=== PATIENT | female | born 1975 | race American Indian/Alaskan Native ===

== ENCOUNTER 2018-11-05 16:28 | Emergency (ER) | payer OTHER ==
--- NOTE | 2018-11-05 17:48 | Emergency Department Report ---
Blank Doc - Documentation Documentation: states she took some antibiotics recently and got a yeast infection and took a 3 day monistat with no relief states malodous vag d/c and irritation of vagina and worried about STD ua,uot,wet prep, g/c
[2018-11-05 18:33] LABS: Bilirubin,Urine NEG (Negative); Blood,Urine SM (Negative); Color,Urine Yellow (Yellow); Mucus,Urine 1+ /HPF; Protein,Urine <15 mg/dL mg/dL (Negative); Urobilinogen,Urine < 2.0 mg/dL (<2.0)
[2018-11-05 18:36] LABS: HCG Qualitative,Urine Negative (Negative)
[2018-11-05] MEDS ORDERED: ZITHROMAX PO ONE (21:11)
[2018-11-05] MEDS ORDERED: ROCEPHIN IM ONE (21:11)
[2018-11-05] MEDS ORDERED: XYLOCAINE 1% MPF 5 mL INFILTRATI ONE (21:11)
--- NOTE | 2018-11-05 21:13 | Emergency Department Report ---
ED Female HPI - General Chief complaint: Urogenital-Female Stated complaint: VAGINAL DISCHARGE Time Seen by Provider: 11/05/18 17:46 Source: patient Mode of arrival: Ambulatory Limitations: No Limitations - History of Present Illness Initial comments: This is a 43-year-old female nontoxic, well nourished in appearance, no acute signs of distress presents to the ED with c/o of vaginal discharge. Patient denies any vaginal pain or swelling. Patient denies any vaginal ulcers or lesions. Patient denies any nausea, vomiting, chest pain, shortness of breathe, fever, chills, headache, back pain, numbness, tingling, stiff neck. Patient denies any urinary symptoms. Patient denies any allergies or PMH. MD Complaint: vaginal discharge, possible STD -: days(s) Severity: mild Severity scale (0 -10): 0 Consistency: constant Improves with: none Worsens with: none Associated Symptoms: vaginal discharge. denies: vaginal bleeding, abdominal pain, nausea/vomiting, fever/chills, headaches, loss of appetite, dysuria, hematuria, rash, seizure, shortness of breath, syncope, weakness - Related Data Sexually active: Yes Previous Rx's Medication Instructions Recorded Last Taken Type metroNIDAZOLE [Flagyl] 500 mg PO Q12HR #14 tab 11/05/18 Unknown Rx Allergies Allergy/AdvReac Type Severity Reaction Status Date / Time No Known Allergies Allergy Unverified 11/05/18 16:51 ED Review of Systems ROS: Stated complaint: VAGINAL DISCHARGE Other details as noted in HPI Constitutional: denies: chills, fever Eyes: denies: eye pain, eye discharge, vision change ENT: denies: ear pain, throat pain Respiratory: denies: cough, shortness of breath, wheezing Cardiovascular: denies: chest pain, palpitations Endocrine: no symptoms reported Gastrointestinal: denies: abdominal pain, nausea, diarrhea Genitourinary: discharge. denies: urgency, dysuria Musculoskeletal: denies: back pain, joint swelling, arthralgia Skin: denies: rash, lesions Neurological: denies: headache, weakness, paresthesias Psychiatric: denies: anxiety, depression Hematological/Lymphatic: denies: easy bleeding, easy bruising ED Past Medical Hx - Past Medical History Previous Medical History?: Yes Hx Hypertension: Yes - Surgical History Past Surgical History?: Yes Additional Surgical History: C section - Social History Smoking Status: Former Smoker Substance Use Type: None - Medications Home Medications: Home Medications Medication Instructions Recorded Confirmed Last Taken Type metroNIDAZOLE [Flagyl] 500 mg PO Q12HR #14 tab 11/05/18 Unknown Rx ED Physical Exam - General Limitations: No Limitations General appearance: alert, in no apparent distress - Head Head exam: Present: atraumatic, normocephalic - Neck Neck exam: Present: normal inspection, full ROM - GI/Abdominal GI/Abdominal exam: Present: soft, normal bowel sounds. Absent: distended, tenderness, guarding, rebound, rigid, diminished bowel sounds - External exam: Present: normal external exam, other (katelyn Wise RN present on exam). Absent: erythema, swelling, lesions, lacerations, ecchymosis, bleeding Speculum exam: Present: cervical discharge, other (katelyn Wise RN present on exam). Absent: erythema, vaginal discharge, vaginal bleeding, foreign body, tissue, laceration Bi-manual exam: Present: other (katelyn Wise RN present on exam). Absent: cervical motion tendernes, adnexal tenderness, adnexal mass, uterine enlargement, uterine tenderness - Extremities Exam Extremities exam: Present: normal inspection, full ROM, normal capillary refill - Back Exam Back exam: Present: normal inspection, full ROM - Neurological Exam Neurological exam: Present: alert, oriented X3 - Psychiatric Psychiatric exam: Present: normal affect, normal mood - Skin Skin exam: Present: warm, dry, intact, normal color. Absent: rash ED Course Vital Signs 11/05/18 11/05/18 17:46 22:02 Temperature 98.3 F Pulse Rate 69 74 Respiratory 20 17 Rate Blood Pressure 127/63 Blood Pressure 136/67 [Right] O2 Sat by Pulse 99 100 Oximetry - Reevaluation(s) Reevaluation #1: 11/05/18 21:13 Patient is speaking in full sentences with no signs of distress noted. ED Medical Decision Making - Medical Decision Making This is a 43-year-old female that presents with possible STD, Trichomonas and that she'll vaginosis. Patient is stable was examined by me. There is no abdominal tenderness. No pelvic pain. UA obtained. Wet prep obtained. Gonorrhea chlamydia swab pending. Patient was instructed to return in 2 days for GC results. Patient wanted empirical treatment so patient received 250 mg Rocephin and 1 g of azithromycin by mouth. Patient was instructed to Follow-up with a primary care doctor in 3-5 days or if symptoms worsen and continue return to emergency room as soon as possible. At time of discharge, the patient does not seem toxic or ill in appearance. No acute signs of distress noted. Patient agrees to discharge treatment plan of care. No further questions noted by the patient. Critical care attestation.: If time is entered above; I have spent that time in minutes in the direct care of this critically ill patient, excluding procedure time. ED Disposition Clinical Impression: BV (bacterial vaginosis), Trichomonas vaginitis, Possible exposure to STD Disposition: DC- TO HOME OR SELFCARE Is pt being admited?: No Does the pt Need Aspirin: No Condition: Stable Instructions: Bacterial Vaginosis (ED), Safe Sex (ED) Additional Instructions: Follow-up with a primary care doctor in 3-5 days or if symptoms worsen and continue return to emergency room as soon as possible. Return in 3-5 days for gonorrhea and chlamydia results. Prescriptions: metroNIDAZOLE [Flagyl] 500 mg PO Q12HR #14 tab Referrals: LAILA ABURTO MD [Primary Care Provider] - 3-5 Days PRIMARY CAREMD [Referring] - 3-5 Days LULI WESTFALL MD [Staff Physician] - 3-5 Days [facility] [Outside] - 3-5 Days [facility] [Outside] - 3-5 Days Forms: Work/School Release Form(ED)
[2018-11-05 22:03] VITALS: BP 136/67
== END 2018-11-05 23:00 | disposition home or self-care (01) ==
LOC: ED 16:28
DX: N76.0 Acute vaginitis (principal); A59.01 Trichomonal vulvovaginitis; I10 Essential (primary) hypertension; Z87.891 Personal history of nicotine dependence
CPT/HCPCS: 81001; 81025; 87086; 87210; 87591; 96372; 99284; J0696

== ENCOUNTER 2019-06-15 16:22 | Emergency (ER) | payer OTHER ==
--- NOTE | 2019-06-15 18:40 | Event Note ---
ED Screening Note ED Screening Note: Pelvic pain and vaginal bleeding x 1 day. H/O fibroids. last menstraul cycle last week. PSH of tabal ligation. This initial assessment/diagnostic orders/clinical plan/treatment(s) is/are subject to change based on patients health status, clinical progression and re- assessment by fellow clinical providers in the ED. Further treatment and workup at subsequent clinical providers discretion. Patient/guardian urged not to elope from the ED as their condition may be serious if not clinically assessed and man aged. Initial orders include:
[2019-06-15 18:41] VITALS: BP 173/94
[2019-06-15] MEDS ORDERED: IBUPROFEN 800 MG TAB PO ONE (18:41)
[2019-06-15] MEDS ORDERED: IBUPROFEN 800 MG TAB ONE (18:43)
[2019-06-15 19:20] LABS: Basophils # (Auto) 0.1 K/mm3 (0.0-0.1); Basophils % (Auto) 0.7 % (0.0-1.8); Eosinophils # (Auto) 0.1 K/mm3 (0.0-0.4); Eosinophils % (Auto) 1.7 % (0.0-4.3); Hematocrit 33.1 % (30.3-42.9); Hemoglobin 10.6 gm/dl (10.1-14.3); Lymphocytes # (Auto) 2.2 K/mm3 (1.2-5.4); Lymphocytes % (Auto) 30.2 % (13.4-35.0); Mean Corpuscular HGB Conc 32 % (30-34); Mean Corpuscular Volume 72 fl (79-97); Monocytes # (Auto) 0.5 K/mm3 (0.0-0.8); Platelet Count 382 K/mm3 (140-440); Red Cell Distribution Width 18.2 % (13.2-15.2)
[2019-06-15 19:38] LABS: Alanine Aminotransferase 13 units/L (7-56); BUN/Creatinine Ratio 15; Blood Urea Nitrogen 12 mg/dL (7-17); Calcium 9.4 mg/dL (8.4-10.2); Hemolysis Index 5
--- NOTE | 2019-06-15 21:06 | Ultrasound Report ---
US pelvic complete, US transvaginal INDICATION / CLINICAL INFORMATION: pelvic pain and vaginal bleeding. COMPARISON: None available. FINDINGS: Transabdominal and transvaginal imaging was performed. Uterus measures 10.2 x 4.6 x 5.6 cm. The endometrial echo complex is borderline thickened at 15 mm. T here is a somewhat irregular isoechoic structure at the cervix which measures 5.9 x 2.0 x 2.3 cm. No flow is seen within this. There is a 6.6 x 3.0 x 4.8 cm right ovarian cyst. Left ovary is unremarkable. Flow is seen to both ov aleksandar. No free fluid is seen in the pelvis. IMPRESSION: 1. Endometrial echo complex is at the upper limits of normal measuring 15 mm. Correlate with menstrua l cycle. 2. There is a complex irregular 5.9 x 2.0 x 2.3 cm focus at the cervix. No flow is seen within this. This could conceivably be hematoma. Hysteroscopy should be considered to better characterize this. 3. 6.6 x 3.0 x 4.8 cm right ovarian cyst. Given its size, sonographic follow-up is recommended if res olution cannot be determined clinically. Signer Name: Dany Wu MD Signed: 06/15/2019 9:01 PM Workstation Name: [id number]
[2019-06-15] MEDS ORDERED: ACETAMINOPHEN 500 MG TAB ONE (23:37)
[2019-06-16] MEDS ORDERED: IBUPROFEN 600 MG TAB PO ONE (00:11)
[2019-06-16] MEDS ORDERED: CYCLOBENZAPRINE 10 MG TAB PO ONE (00:11)
[2019-06-16] MEDS ORDERED: ACETAMINOPHEN 500 MG TAB PO ONE (00:11)
--- NOTE | 2019-06-16 00:15 | Emergency Department Report ---
ED Female HPI - General Chief complaint: Vaginal Bleeding Stated complaint: STOMACH PAIN Time Seen by Provider: 06/15/19 18:46 Source: patient Mode of arrival: Ambulatory Limitations: No Limitations - History of Present Illness Initial comments: Patient is a 44-year-old -[place] female with a history of chronic uterine fibroids with recurrent uterine dysfunctional bleeding presents to the ED with acute onset assistance obvious suprapubic pain with heavy vaginal bleeding for the last 2 days. Patient states that she just completed her mens trual cycle one week ago. Patient states that the suprapubic pain radiates to her lower back, and gets worse with any ambulation or physical activity. Patient denies syncope, chest pain, shortness of breath, vaginal discharge, dysuria, urinary frequency and urgency, dizziness, fever, chills, cough, traumatic injury, dyspareunia, diarrhea, nausea and vomiting. MD Complaint: vaginal bleeding, pelvic pain -: Sudden, days(s) (2) Location: suprapubic Radiation: other (lower back) Severity: severe Severity scale (0 -10): 7 Quality: sharp, aching Consistency: constant Improves with: none Worsens with: none Are you Now?: No Associated Symptoms: denies other symptoms, vaginal bleeding, abdominal pain (suprapubic pain). denies: vaginal discharge, nausea/vomiting, fever/chills, headaches, loss of appetite, dysuria, hematuria, seizure, shortness of breath, syncope, weakness, other - Related Data Sexually active: Yes Previous Rx's Medication Instructions Recorded Last Taken Type metroNIDAZOLE [Flagyl] 500 mg PO Q12HR #14 tab 11/05/18 Unknown Rx Cyclobenzaprine [Flexeril] 10 mg PO Q8H PRN #15 tablet 06/16/19 Unknown Rx Ibuprofen [Motrin] 800 mg PO Q8HR PRN #30 tablet 06/16/19 Unknown Rx Allergies Allergy/AdvReac Type Severity Reaction Status Date / Time No Known Allergies Allergy Unverified 11/05/18 16:51 ED Review of Systems ROS: Stated complaint: STOMACH PAIN Other details as noted in HPI Constitutional: denies: chills, fever Eyes: denies: eye pain, eye discharge, vision change ENT: denies: ear pain, throat pain Respiratory: denies: cough, shortness of breath, wheezing Cardiovascular: denies: chest pain, palpitations Endocrine: no symptoms reported Gastrointestinal: abdominal pain. denies: nausea, diarrhea Genitourinary: abnormal menses (vaginal bleeding). denies: urgency, dysuria, discharge Musculoskeletal: back pain, arthralgia. denies: joint swelling Skin: denies: rash, lesions Neurological: denies: headache, weakness, paresthesias Psychiatric: denies: anxiety, depression Hematological/Lymphatic: denies: easy bleeding, easy bruising ED Past Medical Hx - Past Medical History Previous Medical History?: Yes Hx Hypertension: Yes - Surgical History Past Surgical History?: Yes Additional Surgical History: C section x 4. tubal ligation - Social History Smoking Status: Never Smoker Substance Use Type: Alcohol - Medications Home Medications: Home Medications Medication Instructions Recorded Confirmed Last Taken Type metroNIDAZOLE [Flagyl] 500 mg PO Q12HR #14 tab 11/05/18 Unknown Rx Cyclobenzaprine [Flexeril] 10 mg PO Q8H PRN #15 tablet 06/16/19 Unknown Rx Ibuprofen [Motrin] 800 mg PO Q8HR PRN #30 tablet 06/16/19 Unknown Rx ED Physical Exam - General Limitations: No Limitations General appearance: alert, in no apparent distress - Head Head exam: Present: atraumatic, normocephalic - Eye Eye exam: Present: normal appearance, PERRL, EOMI Pupils: Present: normal accommodation - ENT ENT exam: Present: normal exam, normal orophraynx, mucous membranes moist, TM's normal bilaterally, normal external ear exam - Neck Neck exam: Present: normal inspection, full ROM. Absent: tenderness - Respiratory Respiratory exam: Present: normal lung sounds bilaterally. Absent: respiratory distress, wheezes, rales, rhonchi, chest wall tenderness, accessory muscle use - Cardiovascular Cardiovascular Exam: Present: regular rate, normal rhythm, normal heart sounds. Absent: systolic murmur, diastolic murmur, rubs, gallop - GI/Abdominal GI/Abdominal exam: Present: soft, tenderness (palpable moderate suprapubic t enderness), normal bowel sounds. Absent: guarding, rebound, hyperactive bowel sounds, hypoactive bowel sounds - Extremities Exam Extremities exam: Present: normal inspection, full ROM, normal capillary refill - Back Exam Back exam: Present: normal inspection. Absent: full ROM, tenderness, CVA tenderness (L), muscle spasm, paraspinal tenderness, vertebral tenderness - Neurological Exam Neurological exam: Present: alert, oriented X3, CN II-XII intact, normal gait, reflexes normal - Psychiatric Psychiatric exam: Present: normal affect, normal mood - Skin Skin exam: Present: warm, dry, intact, normal color. Absent: rash ED Course Vital Signs 06/15/19 18:39 Temperature 97.5 F L Pulse Rate 71 Respiratory 20 Rate Blood Pressure 173/94 O2 Sat by Pulse 100 Oximetry ED Medical Decision Making - Lab Data Result diagrams: 06/15/19 19:00 06/15/19 19:04 - Radiology Data Radiology results: report reviewed, image reviewed Findings [facility] [address] [place] [address] Ultrasound Report Signed Patient: LEANN SPRING MR#: [id number] : 1975 Acct:[id number] Age/Sex: 44 / F ADM Date: 06/15/19 Loc: ED Attending Dr: Ordering Physician: NOAM SHERMAN MD Date of Service: 06/15/19 Procedure(s): US transvaginal Accession Number(s): [id number] cc: NOAM SHERMAN MD US pelvic complete, US transvaginal INDICATION / CLINICAL INFORMATION: pelvic pain and vaginal bleeding. COMPARISON: None available. FINDINGS: Transabdominal and transvaginal imaging was performed. Uterus measures 10.2 x 4.6 x 5.6 cm. The endometrial echo complex is borderline thickened at 15 mm. There is a somewhat irregular isoechoic structure at the cervix which measures 5.9 x 2.0 x 2.3 cm. No flow is seen within this. There is a 6.6 x 3.0 x 4.8 cm right ovarian cyst. Left ovary is unremarkable. Flow is seen to both ovaries. No free fluid is seen in the pelvis. IMPRESSION: 1. Endometrial echo complex is at the upper limits of normal measuring 15 mm. Correlate with menstrual cycle. 2. There is a complex irregular 5.9 x 2.0 x 2.3 cm focus at the cervix. No flow is seen within this. This could conceivably be hematoma. Hysteroscopy should be considered to better characterize this. 3. 6.6 x 3.0 x 4.8 cm right ovarian cyst. Given its size, sonographic follow-up is recommended if resolution cannot be determined clinically. Signer Name: Dany Wu MD Signed: 06/15/2019 9:01 PM Workstation Name: [id number] Transcribed By: MAURICE Dictated By: Dany Wu MD Electronically Authenticated By: Dany Wu MD Signed Date/Time: 06/15/192100 DD/ 58 - Medical Decision Making This is a 44-year-old female who presented to the ED with persistent with vaginal bleeding for the last 2 days and pelvic pain that radiates to the lower back for 3 days. Patient had stated that she just finished a menstrual cycle over one week ago but started bleeding 2 days ago. In the ED, patient is alert and oriented 3 and is not in distress. Lab test results were reviewed and all nonactionable including a negative hCG Quant. Urinalysis test though ordered was tested because the patient refused to give urine sample for testing stating that she had been waiting in the ED for to long and wanted to be discharged home. Transvaginal ultrasound shows endometrial echo complex is at the upper limits of normal measuring 15 mm. It also shows a complex irregular 5.9 x 2.0 x 2.3 cm focus at the cervix. No flow is seen within this. This could conceivably be hematoma. Hysteroscopy should be considered to better characterize this. There is also a 6.6 x 3.0 x 4.8 cm right ovarian cyst. Given its size, sonographic follow-up is recommended if resolution cannot be determined clinically. Patient is a history of recurrent uterine fibroids and stated that her HUMAN SERVICES INSTRUCTOR physician suggested a hysterectomy but she declined the procedure. Patient was also treated for pain in the ED and on reevaluation, patient's pain is well-controlled with medications. Patient was discharged home on medications and advised to follow-up with her HUMAN SERVICES INSTRUCTOR physician or primary care physician in 7-10 days for reevaluation. Patient was advised to maintain a complete pelvic rest, take medications for pain as needed and follow-up as advised. Patient is advised to return to ED immediately if symptoms get worse. - Differential Diagnosis Fibroids; Dysmenorrhea; UTI; Ovarian cysts; Critical care attestation.: If time is entered above; I have spent that time in minutes in the direct care of this critically ill patient, excluding procedure time. ED Disposition Clinical Impression: Acute pelvic pain, female, Dysfunctional uterine hemorrhage, Cyst of right ova ry Uterine fibroid Qualifiers: Uterine leiomyoma location: unspecified location Qualified Code(s): D25.9 - Leiomyoma of uterus, unspecified Disposition: TO HOME OR SELFCARE Is pt being admited?: No Does the pt Need Aspirin: No Condition: Stable Instructions: Uterine Fibroids (ED), Dysfunctional Uterine Bleeding (ED), Abdominal Pain (ED), Muscle Spasm (ED) Additional Instructions: Maintain a complete pelvic rest. Take medications with food, drink plenty of fluids and follow up with your [employer]ia-Manufacturing Engineer Automotive Physician in 7-10 days for reevaluation. Return to the ED immediately if symptoms get worse Prescriptions: Cyclobenzaprine [Flexeril] 10 mg PO Q8H PRN #15 tablet PRN Reason: Muscle Spasm Ibuprofen [Motrin] 800 mg PO Q8HR PRN #30 tablet PRN Reason: Pain , Severe (7-10) Referrals: PRIMARY CARE, [Primary Care Provider] - 3-5 Days Forms: Work/School Release Form(ED) Time of Disposition: 00:15 Print Language: PERSIAN
== END 2019-06-16 00:45 | disposition home or self-care (01) ==
LOC: ED 16:22
DX: D25.9 Leiomyoma of uterus, unspecified (principal); N93.8 Other specified abnormal uterine and vaginal bleeding; I10 Essential (primary) hypertension; Z98.51 Tubal ligation status; Z98.890 Other specified postprocedural states; Z79.899 Other long term (current) drug therapy
CPT/HCPCS: 36415; 76830; 76856; 80053; 84702; 85025